=== PATIENT | female | born 1965 | race Caucasian/White ===

== ENCOUNTER → 2020-02-05 | Outpatient (CLI) | payer BC | LOC: SJCVCIMAG 07:44 | PROVIDERS: ATTEND Internal Medicine | DX: I10 Essential (primary) hypertension (principal); I73.9 Peripheral vascular disease, unspecified; M79.604 Pain in right leg; M79.605 Pain in left leg; R00.2 Palpitations ==

== ENCOUNTER → 2020-02-13 | Outpatient (CLI) | payer BC, OTHER | LOC: SJCVCIMAG 09:23 | PROVIDERS: ATTEND Internal Medicine | DX: R00.2 Palpitations (principal); R06.09 Other forms of dyspnea; I10 Essential (primary) hypertension ==